=== PATIENT | female | born 1960 | race Caucasian/White ===

== ENCOUNTER 2016-12-28 08:49 | Emergency (ER) | payer OTHER ==
[~2016-12-28] VITALS: Ht 154.9 cm; Wt 67.1 kg
[2016-12-28 08:51] VITALS: Ht 154.9 cm; Wt 67.1 kg
[2016-12-28] MEDS ORDERED: FAMOTIDINE 20 MG TAB PO STA (10:44)
[2016-12-28] MEDS ORDERED: BELLADONNA/PHENOBARBITAL TAB PO STA (10:44)
[2016-12-28] MEDS ORDERED: LIDOCAINE/MYLANTA 40 ML BTL PO STA (10:44)
[2016-12-28] MEDS ORDERED: ALPRAZOLAM 0.25 MG TAB PO ONE (11:00)
[2016-12-28] MEDS ORDERED: ACET1TAB40 PO (11:01)
[2016-12-28] MEDS ORDERED: NAPR-688 PO (11:02)
[2016-12-28] MEDS ORDERED: HYDR12.58 PO (11:03)
[2016-12-28] MEDS ORDERED: CYCL-319 PO (11:04)
[2016-12-28 13:00] VITALS: BP 142/61; PULSE 69; RESP 20; TEMP 97.8
[2016-12-28 13:07] LABS: ADD SCAN DIFF NO
[2016-12-28 13:16] LABS: BASOPHILS % 0.3 % (0.0-2.0); EOSINOPHILS % 0.3 % (0.0-7.0); HEMATOCRIT 42.6 % (37.0-47.0); HEMOGLOBIN 13.9 g/dl (12.0-16.0); LYMPHOCYTES # 1.8 10^3/ul (0.8-2.9); LYMPHOCYTES % 15.1 % (15.0-51.0); MEAN CORPUSCULAR HEMOGLOBIN 29.6 pg (29.0-33.0); MEAN CORPUSCULAR HGB CONC 32.6 g/dl (32.0-37.0); MEAN CORPUSCULAR VOLUME 90.8 fl (82.0-101.0); MEAN PLATELET VOLUME 12.8 fl (7.4-10.4); MONOCYTE # 0.5 10^3/ul (0.3-0.9); MONOCYTES % 3.9 % (0.0-11.0); NEUTROPHIL # 9.3 10^3/ul (1.6-7.5); NEUTROPHILS % 80.1 % (39.0-77.0); PLATELET COUNT 284 10^3/UL (140-415); RED BLOOD COUNT 4.69 10^6/ul (4.20-5.40); RED CELL DISTRIBUTION WIDTH 13.1 % (11.5-14.5); WHITE BLOOD COUNT 11.7 10^3/ul (4.8-10.8)
[2016-12-28 13:22] LABS: ALBUMIN 4.3 g/dl (3.3-4.9)
[2016-12-28 13:25] LABS: ALBUMIN/GLOBULIN RATIO 1.07; CREATININE 0.71 mg/dl (0.44-1.00); TOTAL PROTEIN 8.3 g/dl (6.1-8.1)
[2016-12-28 13:26] LABS: CALCIUM 9.3 mg/dl (8.4-10.2)
[2016-12-28 13:35] LABS: ADD UMIC YES; URINE BILIRUBIN (Dip) NEGATIVE (NEGATIVE); URINE BLOOD (Dip) NEGATIVE (NEGATIVE); URINE COLOR LT. YELLOW (YELLOW); URINE GLUCOSE (Dip) NEGATIVE (NEGATIVE); URINE KETONES (Dip) NEGATIVE (NEGATIVE); URINE LEUKOCYTE ESTERASE (Dip) 1+ (NEGATIVE); URINE NITRITE (Dip) NEGATIVE (NEGATIVE); URINE TOTAL PROTEIN (Dip) NEGATIVE (NEGATIVE); URINE UROBILINOGEN (Dip) 0.2 E.U./dL (0.1-1.0)
[2016-12-28] MEDS ORDERED: ALPR0.5T PO (14:13)
[2016-12-28] MEDS ORDERED: CEPH-443 PO (14:13)
[2016-12-28] MEDS ORDERED: CEPHALEXIN 500 MG CAP PO ONE (14:30)
--- NOTE | 2016-12-28 14:33 | ERD ---
ER Documentation Chief Complaint Date/Time DATE: 12/28/16 TIME: 14:30 Chief Complaint AP ONSET LAST NIGHT HPI 56-year-old woman complaining of anxiety and suprapubic abdominal pain. Symptoms began last night. She denies slurred speech, no weakness in her arms or legs, no vaginal discharge, no fevers or chills, no chest pain or shortness of breath. ROS All systems reviewed and are negative except as per history of present illness. Medications Home Meds Active Scripts Alprazolam* (Xanax*) 0.5 Mg Tab, 0.5 MG PO TID for ANXIETY, #12 TAB Prov:MARGE LAWRENCE MD 12/28/16 Cephalexin* (Keflex*) 500 Mg Capsule, 500 MG PO QID for 5 Days, CAP Prov:MARGE LAWRENCE MD 12/28/16 Reported Medications Cyclobenzaprine Hcl* (Cyclobenzaprine Hcl*) 10 Mg Tablet, 10 MG PO QHS Y for MUSCLE SPASMS, #60 TAB 12/28/16 Hydrochlorothiazide* (Hydrochlorothiazide*) 12.5 Mg Tablet, 12.5 MG PO DAILY, # 30 TAB 12/28/16 Naproxen* (Naproxen*) 500 Mg Tablet, 500 MG PO BID Y for PAIN AND/OR INFLAMMATION, TAB 12/28/16 Acetaminophen with Codeine (Acetaminophen-Cod #3 Tablet) 1 Each Tablet, 1 TAB PO Q6H Y for PAIN, #7 TAB 12/28/16 Allergies Allergies: Coded Allergies: No Known Allergy (Unverified , 12/28/16) PMhx/Soc Anxiety History of Surgery: Yes (L knee surgery.) Anesthesia Reaction: No Hx Neurological Disorder: No Hx Respiratory Disorders: No Hx Cardiac Disorders: No Hx Psychiatric Problems: No Hx Miscellaneous Medical Probl: Yes (HTN) Hx Alcohol Use: No Hx Substance Use: No Hx Tobacco Use: No Smoking Status: Never smoker FmHx Family History: No diabetes Physical Exam Vitals Vital Signs Date Time Temp Pulse Resp B/P Pulse Ox O2 Delivery O2 Flow Rate FiO2 12/28/16 13:00 97.8 69 20 142/61 100 12/28/16 11:00 98.4 66 18 186/74 100 12/28/16 08:51 98.4 86 20 136/66 99 Physical Exam GENERAL: Well-developed, well-nourished, well-hydrated, appears anxious HEENT: Moist mucous membranes, pink conjunctiva, no cervical spine tenderness or step-off deformities, no goiter, no jaundice or icterus, extraocular movements intact without pain. No submandibular induration, and no pharyngeal erythema NEURO: Alert and oriented 3, cranial nerves II through XII intact bilaterally, pupils equal round reactive to light, no focal deficits or facial asymmetry, sensation intact distally Strength 5/5 in upper and lower extremities bilaterally CARDIAC: Regular rate and rhythm, no murmurs rubs or gallops LUNGS: Clear bilaterally no wheezing crackles or stridor ABDOMEN: Soft nontender, no guarding, no rigidity, no rebound, no psoas sign no obturator sign. Normoactive bowel sounds SKIN: Warm and dry to touch, no abrasions, contusions, or hematomas, no lacerations, no ecchymosis, no target lesions, and without ulcers EXTREMITIES: No clubbing cyanosis or edema, calves are bilaterally symmetrical, no Homans sign, no popliteal cord sign. Distal pulses equal and bilateral PSYCH: Anxious Result Diagram: 12/28/16 1255 12/28/16 1255 Results 24 hrs Laboratory Tests Test 12/28/16 10:30 12/28/16 12:55 Urine Bilirubin NEGATIVE Urine Clarity CLEAR Urine Color LT. YELLOW Urine Epithelial Cells FEW Urine Glucose NEGATIVE% Urine Hemoglobin NEGATIVE Urine Ketones NEGATIVE Urine Leukocyte Esterase 1+ Urine Microscopic RBC 2-5/HPF Urine Microscopic WBC 2-5/HPF Urine Nitrite NEGATIVE Urine Specific [place] 1.010 Urine Total Protein NEGATIVE Urine Urobilinogen 0.2 E.U./dL Urine pH 7.0 Alanine Aminotransferase (ALT/SGPT) 28IU/L Albumin 4.3g/dl Albumin/Globulin Ratio 1.07 Alkaline Phosphatase 118IU/L Anion Gap 20 Aspartate Amino Transf (AST/SGOT) 57IU/L Basophils # 0.010^3/ul Basophils % 0.3% Blood Urea Nitrogen 12mg/dl Calcium Level 9.3mg/dl Carbon Dioxide Level 28mmol/L Chloride Level 100mmol/L Creatinine 0.71mg/dl Direct Bilirubin 0.00mg/dl Eosinophils # 0.010^3/ul Eosinophils % 0.3% Globulin 4.00g/dl Glucose Level 103mg/dl Hematocrit 42.6% Hemoglobin 13.9g/dl Indirect Bilirubin 0.0mg/dl Lipase 50U/L Lymphocytes # 1.810^3/ul Lymphocytes % 15.1% Mean Corpuscular Hemoglobin 29.6pg Mean Corpuscular Hemoglobin Concent 32.6g/dl Mean Corpuscular Volume 90.8fl Mean Platelet Volume 12.8fl Monocytes # 0.510^3/ul Monocytes % 3.9% Neutrophils # 9.310^3/ul Neutrophils % 80.1% Nucleated Red Blood Cells # 0.010^3/ul Nucleated Red Blood Cells % 0.0/100WBC Platelet Count 16908^3/UL Potassium Level 4.0mmol/L Red Blood Count 4.6910^6/ul Red Cell Distribution Width 13.1% Sodium Level 144mmol/L Total Bilirubin 0.0mg/dl Total Protein 8.3g/dl White Blood Count 11.710^3/ul Current Medications Medications (Trade) Dose Ordered Sig/Angie Route PRN Reason Start Time Stop Time Status Last Admin Dose Admin Famotidine (Pepcid) 40 mg ONCE STAT PO 12/28/16 10:44 12/28/16 10:45 DC 12/28/16 10:51 Miscellaneous Medication (Gi Cocktail (2)) 40 ml ONCE STAT PO 12/28/16 10:44 12/28/16 10:45 DC 12/28/16 10:52 Belladonna/ Phenobarbital () 2 tab ONCE STAT PO 12/28/16 10:44 12/28/16 10:45 DC 12/28/16 10:52 Alprazolam (Xanax) 1 mg ONCE ONCE PO 12/28/16 11:00 12/28/16 11:01 DC 12/28/16 10:51 Cephalexin (Keflex) 500 mg ONCE ONCE PO 12/28/16 14:30 12/28/16 14:31 Procedures/MDM I administered alprazolam 1 mg p.o., Maalox suspension 30 cc p.o., famotidine 40 mg p.o. with good effect. CBC and electrolytes were normal, liver function tests are normal. Urinalysis was positive for infection. I treated her here with cephalexin 500 mg p.o. Differential diagnoses considered, included but not limited to acute coronary syndrome, pulmonary embolism, aortic dissection, abdominal aortic aneurysm, sepsis, stroke, meningitis, encephalitis, pneumonia, appendicitis, cholecystitis , bowel obstruction, pyelonephritis, nephrolithiasis, cystitis, as well as metabolic, hematologic, and electrolyte abnormalities. As well as abscess, cellulitis, fractures, and dislocations. Patient feels much better at this time, and vital signs are normal, symptoms have improved. I did give strict instructions to return to the ED if symptoms continue or worsen, patient will otherwise follow-up with primary care physician. Patient understood instructions and agreed to plan. Departure Diagnosis: Primary Impression: UTI (urinary tract infection) Urinary tract infection type: acute cystitis Hematuria presence: without hematuria Qualified Code: N30.00 - Acute cystitis without hematuria Additional Impression: Anxiety Condition: Good Patient Instructions: Anxiety Reaction, Bladder Infection, Female (Adult) MARGE LAWRENCE MD Dec 28, 2016 14:33
== END 2016-12-28 14:42 | disposition home or self-care (01) ==
LOC: E/R 08:49
DX: N30.00 Acute cystitis without hematuria (principal); I10 Essential (primary) hypertension
CPT/HCPCS: 36415; 80053; 81001; 81003; 83690; 85025; Z7502; Z7610; 99284